=== PATIENT | female | born 1970 | race Caucasian/White ===

== ENCOUNTER 2018-12-14 13:27 | Day surgery (SDC) | payer OTHER ==
[~2018-12-14] VITALS: Ht 152.4 cm; Wt 53.3 kg
--- NOTE | 2018-12-14 13:58 | PREAC ---
Date/Time of Note Date/Time of Note DATE: 12/14/18 TIME: 13:57 Anesthesia Eval and Record Evaluation Time Pre-Procedure Interview DATE: 12/14/18 TIME: 13:57 Age 48 Sex female NPO: 8 hrs Preoperative diagnosis GERD Planned procedure EGD, colonoscopy Past Medical History Past Medical History: None Surgery & Anesthesia Issues No known issue Meds Anticoagulation: No Beta Saige within 24 hr: No Reason Beta Saige not given: Pt. not on B-Saige Meds reviewed: Yes Allergies Coded Allergies: butorphanol (Verified Allergy, Unknown, 04/10/16) Allergies Reviewed: Yes Labs/Studies Labs Reviewed: Reviewed by anesthesiologist test: Negative Studies: ECG Pre-procedure Exam Airway: Adequate mouth opening, Adequate thyromental dist Mallampati: Mallampati II Teeth: Normal Lung: Normal Heart: Normal ASA Physical Status ASA physical status: 2 Emergency: None Planned Anesthetic General/MAC: MAC Pre-operative Attestations Prior to commencing anesthesia and surgery, the patient was re-evaluated, there was verification of: *The patient's identity *The results of appropriate recent lab work and preoperative vital signs *The above evaluation not changing prior to induction *Anesthetic plan, risk benefits, alternative and complications discussed with patient/family; questions answered; patient/family understands, accepts and wishes to proceed. CHILO WHITE Dec 14, 2018 13:58
[2018-12-14 14:03] VITALS: Ht 152.4 cm; Wt 53.3 kg
[2018-12-14 14:08] VITALS: BP 116/75; PULSE 72; RESP 18
[2018-12-14] MEDS ORDERED: PROPOFOL 40 ML ONE (14:09)
[2018-12-14 14:55] VITALS: BP 108/70; PULSE 69; RESP 16
--- NOTE | 2018-12-14 18:42 | PAC ---
Date/Time of Note Date/Time of Note DATE: 12/14/18 TIME: 18:42 Post-Anesthesia Notes Post-Anesthesia Note Last documented vital signs Vital Signs Date Temp Pulse Resp B/P (MAP) Pulse Ox O2 O2 Flow FiO2 Time Delivery Rate 12/14/18 97.8 69 16 108/70 99 Room Air 14:55 (83) Activity: WNL Respiratory function: WNL Cardiovascular function: WNL Mental status: Baseline Pain reasonably controlled: Yes Hydration appropriate: Yes Nausea/Vomiting absent: Yes CHILO WHITE Dec 14, 2018 18:42
== END 2018-12-14 17:41 | disposition home or self-care (01) ==
LOC: GIL 13:27
PROVIDERS: ATTEND Internal Medicine Gastroenterology
DX: K64.8 Other hemorrhoids (principal); K57.30 Diverticulosis of large intestine without perforation or abscess without bleeding; K29.60 Other gastritis without bleeding
CPT/HCPCS: 84703; 88305; 88312

== ENCOUNTER 2019-07-12 06:39 | Day surgery (SDC) | payer OTHER ==
[2019-07-12] VITALS (19 sets, daily range): BP systolic 95–156; BP diastolic 57–83; PULSE 60–88; RESP 9–33; Ht 154.9 cm; Wt 57.1 kg
[~2019-07-12] VITALS: Ht 154.9 cm; Wt 57.1 kg
[2019-07-12] MEDS ORDERED: CEFAZOLIN 2 GM/50 ML (PMX) 50 ML IVPB SCH (07:00)
[2019-07-12] MEDS ORDERED: SOD CHLORIDE 0.9% 1,000 ML IV SCH (07:00)
[2019-07-12] MEDS ORDERED: MIDAZOLAM 1 MG/ML 2 ML INJ ONE (13:27)
[2019-07-12] MEDS ORDERED: ISOSULFAN BLUE 1% 5 ML INJ SC ONE (13:28)
[2019-07-12] MEDS ORDERED: BUPIVACAINE 0.5%/EPI (SDV) 30 ML INJ ONE (13:29)
[2019-07-12] MEDS ORDERED: BUPIVACAINE 0.25%/EPI (SDV) 10 ML INJ ONE (13:29)
[2019-07-12] MEDS ORDERED: PROPOFOL 20 ML ONE (13:31)
[2019-07-12] MEDS ORDERED: METOCLOPRAMIDE 10 MG INJ ONE (13:31)
[2019-07-12] MEDS ORDERED: ROCURONIUM 50 MG INJ ONE (13:31)
[2019-07-12] MEDS ORDERED: GLYCOPYRROLATE 0.4 MG INJ ONE (13:31)
[2019-07-12] MEDS ORDERED: ONDANSETRON 4 MG INJ ONE (13:31)
[2019-07-12] MEDS ORDERED: CEFAZOLIN 1 GM INJ ONE (13:51)
[2019-07-12] MEDS ORDERED: HYDROmorphONE 2 MG/ML SYG ONE (13:54)
[2019-07-12] MEDS ORDERED: NEOSTIGMINE 3 MG/3 ML SYRINGE ONE (14:30)
[2019-07-12] MEDS ORDERED: IBUPROFEN 600 MG TAB PO PRN (15:00)
[2019-07-12] MEDS ORDERED: morphine 2 MG INJ IV PRN (15:00)
[2019-07-12] MEDS ORDERED: HYDROCODONE/APAP (5/325) TAB PO PRN ×2 (15:00)
[2019-07-12] MEDS ORDERED: ONDANSETRON 4 MG INJ IV PRN (15:00)
[2019-07-12] MEDS ORDERED: KETOROLAC 30 MG INJ IV PRN (15:00)
[2019-07-12] MEDS ORDERED: FENTAnyl 50 MCG/ML VIAL ONE (15:24)
[2019-07-12] MEDS ORDERED: MEPERIDINE 25 MG INJ IV PRN (15:30)
[2019-07-12] MEDS ORDERED: HYDROmorphONE 1 MG/5 ML IV SYRINGE IV PRN ×3 (15:30)
[2019-07-12] MEDS ORDERED: FENTAnyl 50 MCG/ML VIAL IV PRN ×2 (15:30)
[2019-07-12] MEDS ORDERED: DIPHENHYDRAMINE 50 MG INJ IV PRN (15:30)
[2019-07-12] MEDS ORDERED: OXYCODONE/ACETAMINOPHEN (5/325) TAB PO PRN ×2 (15:30)
[2019-07-12] MEDS: FENTAnyl 50 MCG/ML VIAL IV PRN ×2 (15:34→15:40)
[2019-07-12] MEDS: ONDANSETRON 4 MG INJ IV PRN ×2 (15:54→16:16)
[2019-07-12] MEDS ORDERED: SCOPOLAMINE 1.5 MG PATCH TRANSDERM ONE (18:00)
[2019-07-12] MEDS ORDERED: METOCLOPRAMIDE 10 MG INJ IV ONE (18:00)
== END 2019-07-12 17:47 | disposition home or self-care (01) ==
LOC: SDS 06:39
PROVIDERS: ATTEND Surgery
DX: D05.12 Intraductal carcinoma in situ of left breast (principal); E03.9 Hypothyroidism, unspecified
CPT/HCPCS: 19301; 38500; 38792; 81005; 84703; 88307; J0690; J1170; J2250; J2405; J2710; J2765; J3010; Q9968; 88342